=== PATIENT | male | born 1960 | race Caucasian/White ===

== ENCOUNTER → 2016-05-28 | Outpatient (CLI) | payer BC ==
[2016-05-28 13:37] LABS: BASOPHILS # (AUTO) 0.03 10*3/UL; BASOPHILS % (AUTO) 0.4 % (0-1); EOSINOPHILS % (AUTO) 3.6 % (0-8); HEMATOCRIT 49.4 % (42.0-52.0); HEMOGLOBIN 16.7 g/dL (14.0-18.0); IMM GRAN % (AUTO) 0.3 % (0-5); IMM GRAN# (AUTO) 0.02 10*3/UL; LYMPHOCYTES # (AUTO) 2.64 10*3/uL; LYMPHOCYTES % (AUTO) 35.2 % (10-50); MEAN CORPUSCULAR HEMOGLOBIN 29.2 PG (27-31); MEAN CORPUSCULAR HGB CONC 33.8 g/dL (33-37); MEAN PLATELET VOLUME 11.3 FL (7.4-12.2); MONOCYTES # (AUTO) 0.59 10*3/UL (0.3-0.8); MONOCYTES % (AUTO) 7.9 % (5-15); NEUTROPHILS # (AUTO) 3.95 10*3/UL; NEUTROPHILS % (AUTO) 52.6 % (50-80); RED BLOOD COUNT 5.72 10^6/uL (4.70-6.10)
[2016-05-28 13:41] LABS: PLATELET MORPHOLOGY COMMENT NORMAL MORPHOLOGY (NORM)
== END ==
LOC: MOB LAB 10:27
PROVIDERS: ATTEND Internal Medicine
DX: E78.5 Hyperlipidemia, unspecified (principal); I10 Essential (primary) hypertension; R41.3 Other amnesia
CPT/HCPCS: 36415; 84443; 85025; 86140

== ENCOUNTER → 2016-09-19 | Outpatient (CLI) | payer BC ==
[2016-09-19 09:32] LABS: BLOOD UREA NITROGEN 26 mg/dL (7-22); BUN/CREATININE RATIO 23.63 (6-20); CALCIUM 9.2 mg/dL (8.7-10.7); CHOL/HDL RATIO 6.14 RATIO (0-4.0); EST GLOMERULAR FILTRATION > 60 (>60 ml/min/1.73m(2)); HDL CHOLESTEROL 34 mg/dL (40-150); SERUM CHOLESTEROL 209 mg/dL (120-200)
== END ==
LOC: LAB 09:00
PROVIDERS: ATTEND Internal Medicine
DX: I10 Essential (primary) hypertension (principal); E78.5 Hyperlipidemia, unspecified
CPT/HCPCS: 36415; 80048; 80061

== ENCOUNTER 2018-09-29 09:01 | Inpatient (IN) ==
[2018-09-29] MEDS ORDERED: Sodium Chloride 0.9% 1,000 ML PRIMARY IV ONE (09:02)
[2018-09-29] MEDS ORDERED: ONDANSETRON 4 MG/2 ML VIAL IVP ONE (09:03)
[2018-09-29 09:10] LABS: BASOPHILS # (AUTO) 0.02 10*3/UL; BASOPHILS % (AUTO) 0.1 % (0-1); EOSINOPHILS % (AUTO) 0.6 % (0-8); Hematocrit [HCT] 49.4 % (42.0-52.0); Hemoglobin [HGB] 16.2 g/dL (14.0-18.0); LYMPHOCYTES # (AUTO) 3.17 10*3/uL; MEAN CORPUSCULAR HEMOGLOBIN 28.7 PG (27-31); MEAN CORPUSCULAR HGB CONC 32.8 g/dL (33-37); MEAN CORPUSCULAR VOLUME 87.6 FL (80-90); MEAN PLATELET VOLUME 10.8 FL (7.4-12.2); MONOCYTES # (AUTO) 1.23 10*3/UL (0.3-0.8); MONOCYTES % (AUTO) 7.6 % (5-15); NEUTROPHILS # (AUTO) 11.59 10*3/UL; NEUTROPHILS % (AUTO) 71.7 % (50-80); RED BLOOD COUNT 5.64 10^6/uL (4.70-6.10)
[2018-09-29 09:12] LABS: PLATELET MORPHOLOGY COMMENT NORMAL MORPHOLOGY (NORM); RBC MORPHOLOGY COMMENT NORMAL MORPHOLOGY (NORM); WBC MORPHOLOGY COMMENT NORMAL MORPHOLOGY (NORM)
[2018-09-29 09:13] LABS: BILIRUBIN,URINE NEGATIVE (NEG); CLARITY,URINE CLEAR (CLEAR); COLOR,URINE YELLOW (Y); GLUCOSE, URINE (UA) NEGATIVE (NEG); OCCULT BLOOD,URINE NEGATIVE (NEG); PROTEIN,URINE 30 mg/dl (NEG); UROBILINOGEN,URINE 0.2 EU/dL (0.2)
[2018-09-29 09:15] LABS: BLOOD UREA NITROGEN 20 mg/dL (7-22); SERUM ALBUMIN 4.9 g/dL (3.5-4.8)
[2018-09-29 09:17] LABS: BACTERIA,URINE FEW; RBC,URINE 0-5 /hpf; SQUAMOUS EPITHELIAL CELL,UR RARE; URINE SAMPLE TYPE CLEAN CATCH URINE; WBC,URINE 0-1
[2018-09-29] MEDS ORDERED: MORPHINE SULFATE 4 MG/1 ML IVP ONE ×2 (09:28→10:24)
--- NOTE | 2018-09-29 09:37 | PDOC ---
Abdomen/Flank HPI - General Chief Complaint: Abdomen Pain Stated Complaint: abdominal pain Date Seen by Provider: 09/29/18 Time Seen by Provider: 09:05 Source: POSITIVE: Patient Exam Limitations: POSITIVE: No limitations Nurse's Notes Reviewed & Considered: Yes - Record Incomplete - History of Present Illness Initial Comments: 58-year-old male presents emergency Department with right-sided abdominal pain and nausea and vomiting. The nausea and vomiting started first and then the pain developed. The patient is now sharp and worse with movement. He denies chills but does report subjective fever yesterday. Denies chest pain or shortness of breath. Denies cough. Denies rhinorrhea/congestion/sore throat. Denies testicular pain/scrotal swelling/discharge. Denies previous similar problems. Body Location Affected: REPORTS: Abdomen Timing: REPORTS: Abrupt, Constant, Getting Worse Duration: <24 hours Quality: REPORTS: Aching, Sharpness Abdominal Pain Onset Location: REPORTS: RUQ, RLQ Abdominal Pain Radiation: REPORTS: Back Context: REPORTS: None Modifying Factors: improves with: Vomiting Associated Symptoms: REPORTS: Nausea. DENIES: Syncope, Testicular Pain, Grossly Bloody Diarrhea, Constipation, Diarrhea, Dysuria - Patient Home Medications Home Medications: Home Medications Glucosamine HCl 1,500 mg PO BID tab 02/05/16 diclofenac 1 % topical gel 4 g TOPICAL QID #1 tube 11/25/17 aspirin 81 mg tablet,delayed release 81 mg PO QDAY 05/07/18 omega-3 fatty acids-fish oil 684 mg-1,200 mg capsule,delayed release 1 cap PO QDAY cap 05/07/18 ezetimibe 10 mg tablet 10 mg PO QDAY #90 tab 07/29/18 hydrochlorothiazide 25 mg tablet 25 mg PO QDAY #90 tab-cap 07/29/18 levocetirizine 5 mg tablet 5 mg PO QDAY #90 tab 07/29/18 losartan 100 mg tablet 100 mg PO QDAY #90 tab-cap 07/29/18 metoprolol succinate ER 50 mg tablet,extended release 24 hr 50 mg PO BID #180 tab 07/29/18 - Patient Allergies Allergies/Adverse Reactions: Allergies Allergy/AdvReac Type Severity Reaction Status Date / Time No Known Drug Allergies Allergy N/A Verified 09/29/18 08:46 Past Medical History - heen HEENT History: Denies History Additional HEENT History: RECENT NASAL SX FOR SEPTUM REPAIR Cardiovascular History: Hypertension, Hyperlipidemia Respiratory History: Denies History Gastrointestinal History: Denies History Genitourinary History: Denies History Endocrine History: Denies History Musculoskeletal History: Denies History Neurological History: Denies History Blood Disorders: Denies History Psychiatric History: Denies History History of Sexually Transmitted Diseases: No Male Reproductive History: Denies History Cancer History: Denies History In Past Year Been Physically Harmed or Verbally Threatened: No History of MDRO: No History of Other Communicable Diseases: No Tobacco Use: Never Smoker Alcohol Use: Occasionally In the Past 12 Months, Have Used or Abuse Any Substance: None Previous Surgical History: Yes Type / Date of Surgery: SEPTOPLASTY 06/26/12/ LEFT FOOT NERVE SX BETWEEN 3 AND 4 DIGIT/ TONSILLECTOMY/SCRAPNEL REMOVAL FROM RIGHT 5TH FINGER. Anesthesia Reactions: No Malignant Hyperthermia: No Significant Family History: No pertinent family hx, Heart disease Additional Family History: FATHER HAS HEART DISEASE ROS - Limitations ROS Limitations: No Limitations Constitution: REPORTS: Fever. DENIES: Chills Cardiovascular: REPORTS: Denies Cardiac Symptoms Respiratory: REPORTS: Denies Resp Symptoms Neurological: REPORTS: Denies Neuro Symptoms Gastrointestinal: REPORTS: Abdominal Pain, Nausea, Vomitting. DENIES: Diarrhea Endocrine: REPORTS: Denies Symptoms Musculoskeletal: REPORTS: Denies MS Symptoms Genitourinary: REPORTS: Denies Symptoms Eyes: REPORTS: Denies Symptoms ENT: REPORTS: Denies Symptoms Skin: REPORTS: Denies Skin Symptoms Lympathic: REPORTS: Denies Lympathic Symptoms Immunologic: POSITIVE: Denies Symptoms Psychiatric: POSITIVE: Denies Psych Symptoms Abdominal/Flank Pain PE - General Appearance General Appearance: POSITIVE: Alert, Cooperative, No Evidence of Trauma, Moderate Distress - HEENT HEENT: POSITIVE: Head Inspection Nml, Eyes Inspection Nml, Nose Inspection Nml, Oral/Dental Inspect. Nml, Pharynx Inspect. Nml, PERRL, EOMI, Dry Mucous Membranes - Neck Neck: POSITIVE: Normal Inspection, No Apparent Injury - Respiratory Respiratory: POSITIVE: No Respiratory Distress, Breath Sounds Normal - Cardiovascular Cardiovascular: POSITIVE: Regular Rate and Rhythm, Heart Sounds Normal, Equal Pulses, Strong Pulses Peripheral Pulses: Radial (R): 2+, Radial (L): 2+ - Chest Chest: POSITIVE: Non Tender - Abdomen Abdomen: Soft: (All Quadrants), Normal Bowel Sounds: (All Quadrants), Denies Tenderness: (LLQ), (LUQ), No Guarding: (LUQ), (LLQ), No Rebound: (LLQ), (RLQ), (LUQ), (RUQ), (All Quadrants), Tenderness Noted: (RUQ), (RLQ), Guarding: (RLQ), (RUQ) - Back Back: POSITIVE: Normal Inspection. 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, Motor Normal, Sensation Normal - Psychological Psychiatric: POSITIVE: Affect Appropriate, Mood Appropriate Abdomen Progress - Results Reviewed by me Xrays/CTs/US Reviewed by me: Yes Discussed with Radiologist: No Radiology Findings: Acute appendicitis with apendicolith without free air nor obstruction Lab Results Reviewed by Me: Yes (WBC elevated consistent with i nfection/inflammation) CBC and BMP: 09/29/18 09:00 09/29/18 09:00 Lab Results:: Laboratory Results 09/29/18 09/29/18 09/29/18 09:00 09:00 09:00 WBC 16.17 H RBC 5.64 Hgb 16.2 Hct 49.4 MCV 87.6 MCH 28.7 MCHC 32.8 L RDW Std Deviation 45.9 RDW Coeff of [place] 14.3 Plt Count 233 MPV 10.8 Immature Gran % (Auto) 0.4 Neut % (Auto) 71.7 Lymph % (Auto) 19.6 [place] % (Auto) 7.6 Eos % (Auto) 0.6 Baso % (Auto) 0.1 Immature Gran # (Auto) 0.06 Neut # (Auto) 11.59 Lymph # (Auto) 3.17 [place] # (Auto) 1.23 H Eos # (Auto) 0.10 Baso # (Auto) 0.02 WBC Morphology Comment Normal morphology Plt Morphology Comment Normal morphology RBC Morph Comment Normal morphology Sodium 140 Potassium 3.7 L Chloride 99 Carbon Dioxide 24 Anion Gap 17 BUN 20 Creatinine 1.0 Estimated GFR > 60 BUN/Creatinine Ratio 20.00 Glucose 122 H Calculated Osmolality 293.0 H Calcium 9.7 Total Bilirubin 0.8 AST 44 ALT 62 Alkaline Phosphatase 61 Total Protein 7.9 Albumin 4.9 H Globulin 3.0 Albumin/Globulin Ratio 1.60 Ur Collection Type Clean catch urine Urine Color Yellow Urine Clarity Clear Urine pH 6.0 Ur Specific [place] 1.020 Urine Protein 30 A Urine Glucose (UA) Negative Urine Ketones Negative Urine Occult Blood Negative Urine Nitrate Negative Urine Bilirubin Negative Urine Urobilinogen 0.2 Ur Leukocyte Esterase Negative Urine RBC 0-5 Urine WBC 0-1 Ur Squamous Epith Cells Rare Ur Renal Epithelial Cell None Urine Crystals None Urine Bacteria Few Urine Casts None Urine Mucus Few Urine Trichomonas None Urine Yeast None Ur Culture Indicated? Culture not set - Patient's Progress Pain Medication Addressed: POSITIVE: Yes (Morphine given) Re-examine Time: 10:08 Re-Examine Comment: CT shows acute appendicitis. Will give patient dose of rocephin and flagyl. Will contact general surgery union representative for consultation and likely appendectomy. Results explained to patient. He is amenable to plan. He is still hurting despite initial dose of morphine and therefore will give him a second dose at this time. Re-Examine Comment: Patient seen by surgeon and will be taken to OR for definite treatment. Status: POSITIVE: Unchanged MDM / ED Course: IV line established by nursing staff. Patient given a bolus of fluids. Patient given IV Zofran for nausea. Patient given IV morphine for pain. Will obtain serum labs and CT of abdomen and pelvis. - Consult Consult (If Yes, Name of Consulting MD & Time Called): Yes (Dr. Koehler (general surgery)) Consulting MD will see pt:: POSITIVE: In ED Counseled: POSITIVE: Patient, RE: Lab Results, RE: Radiology Results, RE: DX Patient Care Time - Estimated PCT Patient Care Time (In Minutes): 40 Vital Signs - Recent Vital Signs Vital Signs: Vital Signs (Last 8 hours) Temp Pulse Resp BP Pulse Ox 09/29/18 08:55 96.7 F L 85 20 136/99 96 - VS Reviewed Vital Signs Reviewed: Yes Discharge Clinical Impression: Appendicitis, Abdominal pain, Nausea and vomiting, Dehydration, Leukocytosis Discharge Disposition: Admit to Inpatient Patient Problem(s) Reviewed: Yes Care Transferred To: Dr. Koehler for surgical consulation and appendectomy Date Decision to Admit to Inpatient: 09/29/18 Time Decision to Admit to Inpatient: 10:10
[2018-09-29] MEDS ORDERED: cefTRIAXone Inj 2 GM in Sodium Chloride 0.9% 100 ML IV ONE (10:08)
[2018-09-29] MEDS ORDERED: metroNIDAZOLE 500mg (Premix) 500 MG/100 ML BAG IV ONE (10:09)
--- NOTE | 2018-09-29 10:09 | DI ---
CT ABDOMEN SCAN WITH IV CONTRAST, 09/29/2018 9:27 AM : Clinical History: Right upper quadrant and right lower quadrant abdominal pain. Previous Exam: None at this facility. IV Contrast: 65 mL of Ultravist 370. Oral Contrast: No oral contrast ordered. Rectal Contrast: No rectal contrast ordered. Lungs: No infiltrate or effusion. Liver: Normal liver size. Diffuse fatty infiltration. Gallbladder: Grossly normal. Adrenal Glands: Normal left adrenal gland. 20 mm solid lesion of the right adrenal gland. Spleen: Normal. Pancreas: Normal. Kidneys: Normal size, shape, position and contour. No hydronephrosis or hydroureter. There are 2 mm r adiodensities consistent with nonobstructing renal calculi in upper, mid zone, and lower pole calyces of both kidneys. No ureteral calculi are identified. Masses: None. Lymph Nodes: Normal. Ascites: No ascites. Free Air: None. Spine: Normal lower thoracic and lumbar spine. No blastic or lytic bony lesions noted. READIN. Grossly normal gallbladder. 2. Diffuse fatty infiltration of the liver. 3. Bilateral small 2 mm nonobstructing renal calculi. CT PELVIS SCAN WITH IV CONTRAST, 09/29/2018 9:27 AM: Clinical History: See above. Previous Exam: None at this facility. Contrast: Same bolus used for CT scans of the abdomen. Masses: No masses or enhancing lesions. Ascites: None. Free Air: None. Lymph Nodes: No adenopathy. Appendix: The proximal half of the appendix is dilated and contains a radiodensity consistent with a fecalith. There is periserosal inflammatory/infiltrative change associated with this dilated portion of the appendix. The distal half of the appendix has a normal caliber. Small Bowel: Normal small bowel, terminal ileum, and ileocecal valve. Colon: Normal. High density material is present in the ascending colon probably representing ingested metallic containing antacids. Bladder: Normal. Hernias: None. Bony Pelvis: Normal sacrum, pelvic bones, and hips. No blastic or lytic bony lesions noted. READIN. Acute appendicitis with a high density focus within the proximal appendix most likely representin g a fecalith. 2. The remainder of the study is normal.
[2018-09-29] MEDS ORDERED: Lactated Ringers 1,000 ML PRIMARY IV ONE ×4 (10:10→13:29)
[2018-09-29] MEDS ORDERED: MORPHINE SULFATE 2 MG/1 ML ONE (10:57)
[2018-09-29] MEDS ORDERED: MORPHINE SULFATE 2 MG/1 ML IVP ONE (11:00)
--- NOTE | 2018-09-29 11:01 | PDOC ---
HPI - History of Present Illness Date of Service: 09/29/18 Time of Service: 10:58 Chief Complaint: Patient with right lower quadrant abdominal pain History of Present Illness: Patient is right lower quadrant abdominal pain. This been going on for 24 hours. At peak [place] got more severe. Patient is never had pain like this before. It is 10 out of 10. He is using narcotics about every 30 minutes. Patient has a 16,000 white count. He denies fevers or chills. Denies blood in the stools. Denies diarrhea. Patient is CT scan which was read by Dr. Ferrer. Patient shows acute appendicitis with a fecalith in the appendix. Past Medical History Medical History: Hypertension, hyperlipidemia, allergies Surgical History: Septoplasty in 2013 left foot nerve operation between third and fourth digit, tonsillectomy, as scrapped O. removal from right fifth finger Family History: Reviewed an Not Pertinent Tobacco Use: Never Smoker In the Past 12 Months, Have Used or Abuse Any of the Following Substance: None Medication / Allergies Home Medications: Home Medications Medication Instructions Recorded Confirmed Glucosamine HCl 1,500 mg PO BID tab 02/05/16 09/29/18 diclofenac 1 % topical gel 4 g TOPICAL QID #1 tube 11/25/17 09/29/18 aspirin 81 mg tablet,delayed 81 mg PO QDAY 05/07/18 09/29/18 release omega-3 fatty acids-fish oil 684 1 cap PO QDAY cap 05/07/18 09/29/18 mg-1,200 mg capsule,delayed release ezetimibe 10 mg tablet 10 mg PO QDAY #90 tab 07/29/18 09/29/18 hydrochlorothiazide 25 mg tablet 25 mg PO QDAY #90 tab-cap 07/29/18 09/29/18 levocetirizine 5 mg tablet 5 mg PO QDAY #90 tab 07/29/18 09/29/18 losartan 100 mg tablet 100 mg PO QDAY #90 tab-cap 07/29/18 09/29/18 metoprolol succinate ER 50 mg 50 mg PO BID #180 tab 07/29/18 09/29/18 tablet,extended release 24 hr Allergies/Adverse Reactions: Allergies Allergy/AdvReac Type Severity Reaction Status Date / Time No Known Drug Allergies Allergy N/A Verified 09/29/18 08:46 Exam - Vitals Vital Signs: Vital Signs Temperature 96.7 F Temperature Source Temporal Artery Scan Pulse Rate [Pulse Oximeter] 85 Respiratory Rate 20 Blood Pressure [Left Arm] 136/99 Pulse Ox 96 Oxygen Delivery Method Room Air Height 6 ft Weight 272 lb - General General Appearance: No Acute Distress, Cooperative - Eye Eye Exam: POSITIVE: PERRL, EOMI - ENT ENT Exam: POSITIVE: Normal Exam - Neck Neck Exam: Full ROM - Respiratory Respiratory Exam: POSITIVE: Clear to Auscultation - Bilaterally, Breathing Non Labored - Cardiovascular Cardiovascular Exam: POSITIVE: RRR, No Murmur - GI/Abdominal GI/Abdominal Exam: POSITIVE: Normal Bowel Sounds, Non Distended, Positive for RUQ Pain (Negative referred pain, negative Rovsing sign) Results - Labs CBC and BMP: 09/29/18 09:00 09/29/18 09:00 Assessment and Plan - Patient Problems (1) Appendicitis Current Visit: Yes Status: Acute Code(s): K37 - Unspecified appendicitis - Assessment / Plan Additional Assessment/Plan Details: At this point do think the patient is of surgery. I did talk about alternatives but do not think medical management best option for this gentleman given the fact that he has a fecalith. Will give inserted first available time. One over the difference between laparoscopic and open. He would like Laparoscopic surgery. Understands the possibility of being converted to an open. He understands the risk benefits of surgery.
[2018-09-29] MEDS ORDERED: BUPivacaine Inj 0.25% PF - 10ml vial ONE ×2 (11:14→11:36)
[2018-09-29] MEDS ORDERED: Sodium Chloride 0.9% vial 10 ML ONE (11:15)
[2018-09-29] MEDS ORDERED: MIDAZOLAM HCL 2 MG/2 ML VIAL ONE (11:23)
[2018-09-29] MEDS ORDERED: KETAMINE 100 MG/1 ML - 5 ML ONE (11:23)
[2018-09-29] MEDS ORDERED: fentaNYL Inj 100 MCG/2 ML VIAL ONE (11:23)
[2018-09-29] MEDS ORDERED: PROPOFOL 10 MG/1 ML (200 MG/20 ML) VIAL IV ONE (11:25)
[2018-09-29] MEDS ORDERED: ROCURONIUM 10 MG/1 ML - 5 ML VIAL IVP ONE (11:37)
[2018-09-29] MEDS ORDERED: SUCCINYLCHOLINE CHLORIDE 20 MG/1 ML - 10 ML ONE (11:37)
[2018-09-29] MEDS ORDERED: LIDOCAINE MPF 2% - 5 ML (20 MG/1 ML) ONE (11:38)
[2018-09-29] MEDS ORDERED: DEXAMETHASONE PF 10 MG/1 ML VIAL ONE (12:17)
[2018-09-29] MEDS ORDERED: MORPHINE SULFATE 2 MG/1 ML IVP PRN ×2 (12:23→13:29)
[2018-09-29] MEDS ORDERED: NALOXONE 0.4 MG/1 ML VIAL IVP PRN ×2 (12:23→13:29)
[2018-09-29] MEDS ORDERED: ONDANSETRON 4 MG/2 ML VIAL IVP PRN ×2 (12:23→13:29)
[2018-09-29] MEDS ORDERED: HYDROmorphone 2 MG/1 ML ONE (12:36)
[2018-09-29] MEDS ORDERED: SUGAMMADEX SODIUM 200 MG/2 ML VIAL IV ONE ×2 (12:37→12:38)
--- NOTE | 2018-09-29 12:48 | GEN.OPNOTE ---
Operative Note Surgery Date: 09/29/18 Preoperative Diagnosis: Acute appendicitis Postoperative Diagnosis: Acute appendicitis with localized peritonitis Procedure: Laparoscopic appendectomy Surgeon: Sergio Koehler MD Anesthesia Provider: Julia Parekh CRNA Anesthesia Type: General Estimated Blood Loss (mL): 5 Fluids: Lactated Ringer's please see anesthesia notes in EMR. 30 mg IV Toradol. Patient at the emergency room a dose of Rocephin and Flagyl preoperative antibiotics Pathology: Appendix sent Indications: Patient has right lower quadrant abdominal pain leukocytosis. Patient had CT scan that showed acute appendicitis Findings: Acute appendicitis Complications: None Operative Summary: Patient is brought in operative room. Placed supine position. Given general endotracheal anesthesia. Prepped draped sterile fashion. Timeout performed per protocols. I infiltrated quarter percent Marcaine at each of the trocar sites for postoperative pain. Total of 8 cc was used in divided doses all 3 trocar s ites. Made a small incision below his boat umbilicus. Veress needle was inserted. Pneumoperitoneum obtained by insufflating CO2. Using the Visiport place a 5 mm trocar below the umbilicus. Under direct laparoscopic visualization put a 10 mm trocar in the left lower quadrant. Because of fatty tissue in the suprapubic area I was afraid of injuring the bladder. Therefore put a 5 mm trocar through a stab incision in the right lower quadrant. Hemostasis obtained. Patient is purulent material seen around the appendix. There is acute inflammatory changes seen of the perineum and also around the appendix. Patient did have the terminal ileum prepped around the appendix. I then irrigated until clear. Then using blunt dissection. Remove the stimulator ileum away from the appendix. Using the gyrus divided and cauterized the mesoappendix. The mesoappendiceal artery was within the mesoappendix cauterized. There is no active bleeding noted. I see nothing at the base of the appendix. The 5 mm laparoscopic stapler and fired it across the base of the appendix. Appendix is brought up through the 10 mm trocar. I irrigated until clear. There is no evidence of complications. No evidence of a metastatic appendiceal stump leaking. I then deinsufflated the abdomen. All trocar sites were small defects were not closed. Skin reapproximated using 4-0 Monocryl simple subcuticular stitches. Steri-Strips applied sterile dressings applied. Patient tolerated procedure well the were no complications. . Patient Problems - Patient Problem List (1) Appendicitis Current Visit: Yes Status: Acute Code(s): K37 - Unspecified appendicitis C ategory: Medical Procedure Codes - Surgical Procedures Primary Surgical Procedure: 41723 : Appendectomy, Lap
[2018-09-29] MEDS ORDERED: KETOROLAC 30 MG/1 ML VIAL ONE (13:03)
--- NOTE | 2018-09-29 13:51 | CRNA.PROGR ---
Anesthesia Time - Procedure/Recovery Time Start Date: 09/29/18 End Date: 09/29/18 Anesthesia : Time In: 11:43 Anesthesia : Time Out: 12:59 Anesthesia : Total Time: 76 - Total Anesthesia Time Total Anesthesia Time (minutes): 76 - Other Weight: 123.377 kg Height: 6 ft Body Mass Index (BMI): 36.8 Physical Status: P2 Anesthesia Type: General Anesthesia : ET
--- NOTE | 2018-09-29 13:52 | CRNA.PROGR ---
Anesthesia Recovery Phase I - Post Anesthesia Evaluation Patient's Condition on Arrival in Phase I: Stable Patient's Condition on Arrival in Phase II: Stable Pain Level: 2
--- NOTE | 2018-09-29 13:52 | CRNA.PROGR ---
Post Anesthesia Phase II - Post Anesthesia Phase II Patient Stable and Discharged To: Phase II Temperature: 97.2 F Pulse Rate: 72 Respiratory Rate: 16 Blood Pressure: 128/86 Pulse Ox: 92 Total Sung Score at Discharge: 9 Post Anesthesia Discharge Criteria Met: Yes
[2018-09-29] MEDS: LOSARTAN 50 MG TABLET PO SCH (14:11)
[2018-09-29] MEDS: HYDROCHLOROTHIAZIDE 25 MG TABLET PO SCH (14:11)
[2018-09-29] MEDS ORDERED: BUPivacaine Liposome/PF (Exparel) Inj 20ml vial INFIL ONE (15:37)
[2018-09-29] MEDS: EZETIMIBE 10 MG TABLET PO SCH (20:19)
[2018-09-29] MEDS: metroNIDAZOLE 500mg (Premix) 500 MG/100 ML BAG IV SCH (20:19)
[2018-09-29] MEDS: METOPROLOL SUCCINATE 50 MG SR 24H TABLET PO SCH (20:19)
[2018-09-30] MEDS: HYDROcodone-APAP 7.5 MG-325 MG TABLET PO PRN ×2 (00:31→07:59)
[2018-09-30] MEDS: metroNIDAZOLE 500mg (Premix) 500 MG/100 ML BAG IV SCH (04:19)
[2018-09-30 05:05] LABS: Hematocrit [HCT] 43.2 % (42.0-52.0); Hemoglobin [HGB] 14.7 g/dL (14.0-18.0); MEAN CORPUSCULAR HEMOGLOBIN 30.7 PG (27-31); MEAN CORPUSCULAR VOLUME 90.2 FL (80-90); MEAN PLATELET VOLUME 10.9 FL (7.4-12.2); RED BLOOD COUNT 4.79 10^6/uL (4.70-6.10)
[2018-09-30 05:15] LABS: PLATELET MORPHOLOGY COMMENT NORMAL MORPHOLOGY (NORM); RBC MORPHOLOGY COMMENT NORMAL MORPHOLOGY (NORM); WBC MORPHOLOGY COMMENT NORMAL MORPHOLOGY (NORM)
[2018-09-30 05:16] LABS: BAND NEUTROPHILS % 0 % (0-10); BASOPHILS % (MANUAL) 0 % (0-1); EOSINOPHILS % (MANUAL) 0 % (0-8); MONOCYTES % (MANUAL) 11 % (0-12); NEUTROPHILS % (MANUAL) 77 % (50-80)
[2018-09-30] MEDS: HYDROCHLOROTHIAZIDE 25 MG TABLET PO SCH (07:59)
[2018-09-30] MEDS: METOPROLOL SUCCINATE 50 MG SR 24H TABLET PO SCH (08:00)
[2018-09-30] MEDS: EZETIMIBE 10 MG TABLET PO SCH (08:00)
[2018-09-30] MEDS: LOSARTAN 50 MG TABLET PO SCH (08:00)
[2018-09-30 08:31] VITALS: BP 138/86; RESP 16; TEMP 99.4; O2SAT 90
[2018-09-30] MEDS ORDERED: metroNIDAZOLE 500mg (Premix) 500 MG/100 ML BAG IV SCH (10:00)
[2018-09-30] MEDS ORDERED: cefTRIAXone Inj 1 GM in Sodium Chloride 0.9% 100 ML IV SCH ×2 (10:30→10:40)
--- NOTE | 2018-09-30 11:09 | DCSUMMARY ---
Discharge Summary Admit Date: 09/29/18 Discharge Date: 09/30/18 Admitting Diagnosis: acute appendicitis with localized peritonitis Discharge Diagnosis: Acute appendicitis with localized peritonitis Primary Surgery and Date: 09/29/2018 laparoscopic appendectomy Hospital Course: Patient is admitted the hospital underwent a laparoscopic appendectomy. There is localized peritonitis. Fluid in the abdomen but not a perforation. Patient is doing very well. His white count was still elevated at 17,000 on post op day #1 but he was afebrile. He is having no abdominal pain. Is felt that he can have his next dose of IV antibiotics be discharged home. I will send him home on oral antibiotics. Patient's condition on discharge is stable. He'll follow- up in one week's time. Exam - Vitals Vital Signs: Vital Signs Temperature 99.4 F Temperature Source Oral Pulse Rate [Apical] 70 Pulse Rate [Pulse Oximeter] 88 Pulse Rate 72 Respiratory Rate 16 Blood Pressure [Right Arm] 138/86 Blood Pressure [Left Arm] 124/82 Blood Pressure 128/86 Pulse Ox 90 Oxygen Flow Rate 1 Oxygen Delivery Method Room Air Height 6 ft Weight 274 lb 9.6 oz - General General Appearance: Cooperative - Eye Eye Exam: POSITIVE: PERRL - GI/Abdominal GI/Abdominal Exam: POSITIVE: Normal Bowel Sounds, Non Tender, Non Distended, Soft Patient Problems - Patient Problem List (1) Appendicitis Current Visit: Yes Status: Acute Code(s): K37 - Unspecified appendicitis Category: Medical
== END 2018-09-30 13:19 | disposition home or self-care (01) | DRG 340 ==
LOC: ER 09:01 → OPS 10:40 → OR 10:55 → OPS 11:03 → MED/SURG 11:43
PROVIDERS: ADMIT Surgery; ATTEND Surgery